=== PATIENT | male | born 1985 | race Caucasian/White ===

== ENCOUNTER 2020-09-26 20:47 | Emergency (ER) | payer OTHER, SELFPAY ==
[2020-09-26 20:47] VITALS: BP 153/74; PULSE 85; RESP 16; TEMP 36.4; O2SAT 100; BMI 31.8
[2020-09-26] MEDS: Metoclopramide 10 MG/2 ML Vial IV (21:06)
[2020-09-26] MEDS: DiphenhydrAMINE 50 MG/ML Syringe 25 MG IV (21:06)
[2020-09-26] MEDS: 0.9% Normal Saline 1,000 ML 1000 ML IV (21:06)
--- NOTE | 2020-09-26 21:07 | ED.DCSUM_ITS ---
- ER Visit Summary Date of Service: 09/26/20 Chief Complaint: Headache History of Present Illness: The patient is a 34 M presenting with headache. Patient states he woke up with a headache today. He feels that he may have gotten dehydrated yesterday at work by not drinking enough fluids. He complains of nausea and vomiting. He has vomited twice today. Denies diarrhea. Denies abdominal pain. Denies fever. He has tried Tylenol and Advil at home for his headache. Denies other complaints. Physical Examination: Vitals are stable. Patient is afebrile. Alert no acute distress. HEENT exam is unremarkable. Neck is supple. No meningismus Lungs are clear and equal bilaterally. Heart is regular rate and rhythm. Abdomen is soft nontender nondistended. Extremities are unremarkable. Skin is warm and dry. No focal neurologic deficit. Remainder of exam is unremarkable. Emergency Department Course and Treatment: Patient was given IV fluids, Reglan, Benadryl. Chemistries show sodium 131. Patient feels improved following fluids and medications. He is requesting discharge home. He declined anti-nausea medication for home. He is given Dr. Goode content management consultant for no doctor for follow- up. Advised return to the ED for worsening complaints. Disposition: Discharge home Impression: Headache, resolved This note was generated with [employer] dictation software. It may contain incorrect words, spelling, and punctuation that were not noted in review of the chart prior to signing ED Disposition - Plan for ED Patient: Instructions: ED Headache Unspecified Referrals: Harinder Goode MD [NON-STAFF] -
[2020-09-26 21:45] LABS: Anion Gap 8 (5-15); BUN 15 mg/dL (7-18); Calcium,Total 9.1 mg/dL (8.5-10.1); Chloride 95 mmol/L (98-107); Creatinine, Serum 0.94 mg/dL (0.70-1.30); EST Glomerular Filtration Rate 97 mL/min (>60); Est Glom Filt Rate - Afr Amer 117 mL/min (>60); Estimated Creatinine Clearance 120.39 ml/min; Glucose 95 mg/dL (74-106); Potassium 3.5 mmol/L (3.5-5.1); Sodium Level 131 mmol/L (136-145)
--- NOTE | 2020-09-26 21:50 | ED.DEP ---
ED Disposition - Plan for ED Patient: Instructions: ED Headache Unspecified Referrals: Harinder Goode MD [NON-STAFF] -
== END 2020-09-26 22:08 | disposition home or self-care (01) ==
LOC: ED 21:13
PROVIDERS: Emergency Provider Emergency Medicine
DX: R51.9 Headache, unspecified (principal); R11.2 Nausea with vomiting, unspecified
CPT/HCPCS: 80048; 96361; 96374; 96375; 99283; J7030; A4216